=== PATIENT | female | born 1955 | race Caucasian/White ===

== ENCOUNTER 2016-11-25 16:09 | Inpatient (IN) | payer MEDICARE ==
[2016-11-25 17:31] LABS: Basophils % (A) 0 %; CH 32.4; CHCM 32.5; Eosinophils # (A) 0.1 k/uL (0-0.7); Eosinophils % (A) 1 %; HCT 40.5 % (34.0-46.0); HDW 1.88; HGB 13.4 gm/dL (11.4-16.0); Luc # (Auto) 0.13; Luc % (Auto) 3; Lymphocytes # (A) 1.6 k/uL (1.0-4.8); Lymphocytes % (A) 31 %; MCV 100.1 fL (80.0-100.0); Mean Platelet Volume 6.9; Monocytes # (A) 0.3 k/uL (0-1.0); Monocytes % (A) 6 %; Neutrophils # (A) 3.1 k/uL (1.3-7.7); Neutrophils % (A) 59 %; RBC 4.05 m/uL (3.80-5.40); RDW 13.3 % (11.5-15.5); WBC 5.2 k/uL (3.8-10.6); WBC (Perox) 5.28
[2016-11-25 17:33] LABS: ALT 21 U/L (9-52); AST 20 U/L (14-36); Alkaline Phosphatase 51 U/L (38-126); Anion Gap 10 mmol/L; Blood Urea Nitrogen 18 mg/dL (7-17); Calcium 9.3 mg/dL (8.4-10.2); Carbon Dioxide 25 mmol/L (22-30); Chloride 104 mmol/L (98-107); Glucose 91 mg/dL (74-99); Magnesium 2.1 mg/dL (1.6-2.3); Non-African American GFR(MDRD) >60 (>60 ml/min/1.73 sqM); Potassium 4.6 mmol/L (3.5-5.1); Sodium 139 mmol/L (137-145); Total Bilirubin 0.8 mg/dL (0.2-1.3); Total Protein 6.8 g/dL (6.3-8.2)
--- NOTE | 2016-11-25 17:37 | XR ---
EXAMINATION TYPE: XR chest 2V DATE OF EXAM: 11/25/2016 5:24 PM COMPARISON: NONE HISTORY: Chest pain TECHNIQUE: Frontal and lateral views of the chest are obtained. FINDINGS: There is no heart failure nor confluent pneumonic infiltrate. There are no hilar masses. T horacic aorta is atheromatous. There is no pleural effusion. There are chest leads. IMPRESSION: No active cardiopulmonary disease. Normal heart.
[2016-11-25 17:44] LABS: Partial Thromboplastin Time 23.8 sec (22.0-30.0)
[2016-11-25 17:46] LABS: Creatine Kinase 34 U/L (30-135)
[2016-11-25 17:58] LABS: Creatine Kinase MB 0.2 ng/mL (0.0-2.4); Troponin I <0.012 ng/mL (0.000-0.034)
--- NOTE | 2016-11-25 18:57 | ED ---
General Adult HPI - General Chief complaint: Chest Pain Stated complaint: Chest Pain Time Seen by Provider: 11/25/16 16:19 Source: patient, RN notes reviewed Mode of arrival: wheelchair Limitations: no limitations - History of Present Illness Initial comments: This is a 7-year-old female who believes she's having a reaction to her atenolol. She states she was placed on because she had proximal SVT. She started 25 mg a day she did last night take 12.5 mg. She's been having bradycardia and feeling somewhat weak. She denies any overt chest pain. She denies any fevers chills sweats focal weakness or other symptoms. - Related Data Home Medications Medication Instructions Recorded Confirmed ALPRAZolam [Xanax] 0.25 mg PO BID PRN 11/25/16 11/25/16 Aspirin [Children's Aspirin] 81 mg PO HS 11/25/16 11/25/16 Atenolol 25 mg PO DAILY 11/25/16 11/25/16 Cholecalciferol [Vitamin D3] 2,000 unit PO DAILY 11/25/16 11/25/16 Fish Oil/Dha/Epa [Fish Oil 1,200 1 cap PO DAILY 11/25/16 11/25/16 mg Fish Oil] Hydrochlorothiazide 12.5 mg PO DAILY 11/25/16 11/25/16 Meloxicam 15 mg PO DAILY 11/25/16 11/25/16 Omeprazole 20 mg PO DAILY 11/25/16 11/25/16 Tamoxifen Citrate 20 mg PO DAILY 11/25/16 11/25/16 Turmeric 600mg 600 mg PO DAILY 11/25/16 11/25/16 Allergies Allergy/AdvReac Type Severity Reaction Status Date / Time acetaminophen [From Vicodin] Allergy Rash/Hives Verified 11/25/16 16:28 hydrocodone [From Vicodin] Allergy Rash/Hives Verified 11/25/16 16:28 Review of Systems ROS Statement: Those systems with pertinent positive or pertinent negative responses have been documented in the HPI. ROS Other: All systems not noted in ROS Statement are negative. Past Medical History Past Medical History: Cancer, GERD/Reflux, Osteoarthritis (OA), Supraventricular Tachycardia (SVT) Additional Past Medical History / Comment(s): breast cancer, SVT History of Any Multi-Drug Resistant Organisms: None Reported Past Surgical History: Cholecystectomy, Orthopedic Surgery Additional Past Surgical History / Comment(s): left lumpectomy Past Psychological History: No Psychological Hx Reported Smoking Status: Never smoker Past Alcohol Use History: Occasional Past Drug Use History: None Reported General Exam - General Exam Comments Initial Comments: This is a well-developed well-nourished awake alert oriented x 3 female Limitations: no limitations General appearance: alert, in no apparent distress Head exam: Present: atraumatic, normocephalic, normal inspection Eye exam: Present: normal appearance, PERRL, EOMI. Absent: scleral icterus, conjunctival injection, periorbital swelling ENT exam: Present: normal exam, mucous membranes moist Neck exam: Present: normal inspection. Absent: tenderness, meningismus, lymphadenopathy Respiratory exam: Present: normal lung sounds bilaterally. Absent: respiratory distress, wheezes, rales, rhonchi, stridor Cardiovascular Exam: Present: normal rhythm, bradycardia, normal heart sounds. Absent: systolic murmur, diastolic murmur, rubs, gallop, clicks GI/Abdominal exam: Present: soft, normal bowel sounds. Absent: distended, tenderness, guarding, rebound, rigid Extremities exam: Present: normal inspection, full ROM, normal capillary refill. Absent: tenderness, pedal edema, joint swelling, calf tenderness Back exam: Present: normal inspection Neurological exam: Present: alert, oriented X3, CN II-XII intact Psychiatric exam: Present: normal affect, normal mood Skin exam: Present: warm, dry, intact, normal color. Absent: rash Course Vital Signs 11/25/16 16:11 Temperature 97.8 F Pulse Rate 55 L Respiratory 20 Rate Blood Pressure 178/77 O2 Sat by Pulse 98 Oximetry EKG Findings - EKG Results: EKG: interpreted by ERMD, sinus rhythm (Sinus bradycardia rate of 56. Interval 160 QRS duration 80 daily since QTC of 434/[address]-T wave changes) Medical Decision Making - Medical Decision Making Patient is been observed she has been noted to have bradycardia with occasional ectopy. He did have a long discussion with her and her family patient will be admitted for evaluation Dr. Lagunas will be consulted. - Lab Data Result diagrams: 11/25/16 17:09 11/25/16 17:09 Lab Results 11/25/16 11/25/16 11/25/16 Range/Units 17:09 17:09 17:09 WBC 5.2 (3.8-10.6) k/uL RBC 4.05 (3.80-5.40) m/uL Hgb 13.4 (11.4-16.0) gm/dL Hct 40.5 (34.0-46.0) % MCV 100.1 H (80.0-100.0) fL MCH 33.0 (25.0-35.0) pg MCHC 33.0 (31.0-37.0) g/dL RDW 13.3 (11.5-15.5) % Plt Count 277 (150-450) k/uL Neutrophils % 59 % Lymphocytes % 31 % Monocytes % 6 % Eosinophils % 1 % Basophils % 0 % Neutrophils # 3.1 (1.3-7.7) k/uL Lymphocytes # 1.6 (1.0-4.8) k/uL Monocytes # 0.3 (0-1.0) k/uL Eosinophils # 0.1 (0-0.7) k/uL Basophils # 0.0 (0-0.2) k/uL PT (9.0-12.0) sec INR (<1.1) APTT (22.0-30.0) sec Sodium 139 (137-145) mmol/L Potassium 4.6 (3.5-5.1) mmol/L Chloride 104 (98-107) mmol/L Carbon Dioxide 25 (22-30) mmol/L Anion Gap 10 mmol/L BUN 18 H (7-17) mg/dL Creatinine 0.80 (0.52-1.04) mg/dL Est GFR (MDRD) Af Amer >60 (>60 ml/min/1.73 sqM) Est GFR (MDRD) Non-Af >60 (>60 ml/min/1.73 sqM) Glucose 91 (74-99) mg/dL Calcium 9.3 (8.4-10.2) mg/dL Magnesium 2.1 (1.6-2.3) mg/dL Total Bilirubin 0.8 (0.2-1.3) mg/dL AST 20 (14-36) U/L ALT 21 (9-52) U/L Alkaline Phosphatase 51 (38-126) U/L Total Creatine Kinase 34 (30-135) U/L CK-MB (CK-2) 0.2 (0.0-2.4) ng/mL CK-MB (CK-2) Rel Index 0.6 Troponin I <0.012 (0.000-0.034) ng/mL Total Protein 6.8 (6.3-8.2) g/dL Albumin 4.2 (3.5-5.0) g/dL TSH 1.020 (0.465-4.680) mIU/L 11/25/16 Range/Units 17:09 WBC (3.8-10.6) k/uL RBC (3.80-5.40) m/uL Hgb (11.4-16.0) gm/dL Hct (34.0-46.0) % MCV (80.0-100.0) fL MCH (25.0-35.0) pg MCHC (31.0-37.0) g/dL RDW (11.5-15.5) % Plt Count (150-450) k/uL Neutrophils % % Lymphocytes % % Monocytes % % Eosinophils % % Basophils % % Neutrophils # (1.3-7.7) k/uL Lymphocytes # (1.0-4.8) k/uL Monocytes # (0-1.0) k/uL Eosinophils # (0-0.7) k/uL Basophils # (0-0.2) k/uL PT 10.0 (9.0-12.0) sec INR 1.0 (<1.1) APTT 23.8 (22.0-30.0) sec Sodium (137-145) mmol/L Potassium (3.5-5.1) mmol/L Chloride (98-107) mmol/L Carbon Dioxide (22-30) mmol/L Anion Gap mmol/L BUN (7-17) mg/dL Creatinine (0.52-1.04) mg/dL Est GFR (MDRD) Af Amer (>60 ml/min/1.73 sqM) Est GFR (MDRD) Non-Af (>60 ml/min/1.73 sqM) Glucose (74-99) mg/dL Calcium (8.4-10.2) mg/dL Magnesium (1.6-2.3) mg/dL Total Bilirubin (0.2-1.3) mg/dL AST (14-36) U/L ALT (9-52) U/L Alkaline Phosphatase (38-126) U/L Total Creatine Kinase (30-135) U/L CK-MB (CK-2) (0.0-2.4) ng/mL CK-MB (CK-2) Rel Index Troponin I (0.000-0.034) ng/mL Total Protein (6.3-8.2) g/dL Albumin (3.5-5.0) g/dL TSH (0.465-4.680) mIU/L - Radiology Data Radiology results: report reviewed (I did review the imaging and report no acute findings.), image reviewed Disposition Clinical Impression: Bradycardia Disposition: ADMITTED IP TO THIS HOSP Condition: Stable Referrals: Cabrera Dhillon MD [Primary Care Provider] - 1-2 days
[2016-11-25] MEDS ORDERED: NALOXONE 0.4 MG/ML 1 ML VIAL IV PRN (18:58)
[2016-11-25] MEDS ORDERED: ALPRAZolam 0.25 MG TAB PO PRN (19:00)
[2016-11-25 20:17] VITALS: BMI 25.9
[2016-11-25] MEDS ORDERED: ASPIRIN 81 MG CHEW PO SCH (21:00)
[2016-11-25] MEDS ORDERED: ZOLPIDEM 5 MG TAB PO PRN (21:48)
[2016-11-25] MEDS ORDERED: METOPROLOL TARTRATE 12.5 MG TAB PO PRN (22:41)
[2016-11-26] MEDS ORDERED: ACETAMINOPHEN TAB 325 MG TAB PO PRN (04:32)
[2016-11-26 05:10] VITALS: RESP 16
[2016-11-26] MEDS ORDERED: PANTOPRAZOLE 40 MG TABLET PO SCH (07:30)
--- NOTE | 2016-11-26 08:50 | HP ---
DATE OF ADMISSION: 11/25/2016 PRESENTING COMPLAINT: Weak, tired. HISTORY OF PRESENTING COMPLAINT: This is a very pleasant 61-year-old patient of Dr. Dhillon whose chronic stable medical conditions include GERD, osteoarthritis, history of breast cancer. Patient has been having episodes of fluttering in the chest, went and saw Dr. Dhillon and did get an event monitor. Patient was diagnosed to have SVT and he put her on atenolol 25 mg a day. Patient presented with 2 episodes of dizziness, found her heart rate down to be 44 and getting tired and she decided to come in. Patient this morning only took half the dose, that is 12.5 atenolol and decided to come in. No obvious chest pressure, just feels a bit tired and rundown. REVIEW OF SYSTEMS: CONSTITUTIONAL: Tired. HEENT: As above. RESPIRATORY: None. CARDIOVASCULAR: As above. GASTROINTESTINAL: None. GENITOURINARY: None. MUSCULOSKELETAL: Aches and pains in different joints. DERMATOLOGICAL: None. HEMATOLOGIC: None. LYMPHATICS: None. PSYCHIATRY: None. NEUROLOGICAL: None. Past medical history of GERD, osteoarthritis, breast cancer treated with radiation treatment and lumpectomy. PAST SURGICAL HISTORY: Cholecystectomy, orthopedic surgery, breast surgery as above. SOCIAL HISTORY: Does not smoke. Alcohol occasionally. 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 . FAMILY HISTORY: Reviewed, noncontributory to presentation. HOME MEDICATIONS: 1. Turmeric 600 mg daily. 2. Xanax 0.25 p.o. b.i.d. 3. Fish oil 1 capsule p.o. daily. 4. Vitamin D3 two thousand units p.o. daily. 5. Aspirin 81 mg p.o. q.h.s. 6. Omeprazole 20 mg p.o. daily. 7. Hydrochlorothiazide 12.5 p.o. daily. 8. Atenolol 25 mg p.o. daily. 9. Tamoxifen 20 mg p.o. daily. 10. Meloxicam 50 mg p.o. daily. Allergies to VICODIN. On examination, temperature on presentation 97.8, pulse 55, respirations 20, blood pressure 116/79, repeated 132/62, pulse ox 95% on room air. GENERAL APPEARANCE: Average build, lying in bed, not in distress. EYES: Pupils equal, conjunctivae normal. HEENT: Oral cavity normal. NECK: JVD not raised. Mass not palpable. RESPIRATORY: Effort normal. Lungs are clear. CARDIOVASCULAR: First and second sounds normal. No edema. ABDOMEN: Soft, nontender. Liver and spleen not palpable. LYMPHATIC: No lymph nodes palpable in neck or axillae. PSYCHIATRY: Alert and oriented x3. Mood and affect normal. NEUROLOGICAL: Pupils equal. Cranial nerves grossly intact. Power and sensation grossly intact. INVESTIGATIONS: White count 5.2. Potassium 4.6. BUN 8, creatinine 0.80. TSH normal. Troponin negative. EKG appears to be sinus rhythm with a rate of 56. ASSESSMENT: 1. Symptomatic sinus bradycardia for patient being on beta jacquelyn atenolol 25 mg. 2. Gastroesophageal reflux disease. 3. Primary osteoarthritis in multiple joints, bilateral. 4. Paroxysmal supraventricular tachycardia history. PLAN: Had a long talk with the patient, at this point, we can actually stop patient's atenolol and use Lopressor 12.5 on a p.r.n. basis if she gets these episodes. Patient will be kept off the atenolol, keep her on the monitor. Care was discussed with the patient.
[2016-11-26] MEDS ORDERED: HYDROCHLOROTHIAZIDE 12.5 MG CAP PO SCH (09:00)
[2016-11-26] MEDS ORDERED: TAMOXIFEN 10 MG TAB PO SCH (09:00)
[2016-11-26] MEDS ORDERED: ENOXAPARIN 40 MG/0.4 ML SYRINGE SQ SCH (09:00)
[2016-11-26] MEDS ORDERED: MELOXICAM 7.5 MG TAB PO SCH (09:00)
[2016-11-26] MEDS ORDERED: NON-FORMULARY DRUG (Fish Oil/Dha/Epa [Fish Oil 1,200 Mg Fish Oil] 1 CAP) PO SCH (09:00)
[2016-11-26 09:43] VITALS: BP 124/74
--- NOTE | 2016-11-26 10:19 | P.CRDCN ---
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 According to the patient, on September 17 the patient was started on atenolol, she had worn an event monitor and apparently had been noted to have episodes of SVT, for this reason the atenolol was initiated. The patient states she was scheduled to see a licensed master social worker in [place] as a new patient, but had not yet seen him. Patient states she went to lie down in bed, became quite dizzy, checked her blood pressure and heart rate at that time, blood pressure was fine but the heart rate was in the 40s. For this reason she went to be further evaluated, recommendation was to be admitted to the hospital. Blood pressure on arrival here 178/77 with a heart rate in the 50s. Temperature 97.8 she was 98% on room air. White blood cell count 5.2, hemoglobin 13.4, platelet count 277. Potassium 4.6, BUN 18, creatinine 0.8, troponin 0.012. TSH 1.02. EKG on arrival here showed a sinus bradycardia with nonspecific ST-T wave changes computed tomography scan of the abdomen and pelvis did not reveal evidence of a bowel obstruction, multiple lesions within the liver believed to represent cysts. Tiny umbilical hernia..Ultrasound of the liver revealed hepatic cysts. Chest x-ray did not reveal any acute cardiopulmonary disease. At the time of my examination this morning, patient denies any dizziness or lightheadedness, no palpitations. Past Medical History Past Medical History: Cancer, GERD/Reflux, Osteoarthritis (OA), Supraventricular Tachycardia (SVT) Additional Past Medical History / Comment(s): breast cancer, SVT History of Any Multi-Drug Resistant Organisms: None Reported Past Surgical History: Cholecystectomy, Orthopedic Surgery Additional Past Surgical History / Comment(s): left lumpectomy Past Psychological History: No Psychological Hx Reported Smoking Status: Never smoker Past Alcohol Use History: Occasional Past Drug Use History: None Reported Medications and Allergies Home Medications Medication Instructions Recorded Confirmed Type ALPRAZolam [Xanax] 0.25 mg PO BID PRN 11/25/16 11/25/16 History Aspirin [Children's Aspirin] 81 mg PO HS 11/25/16 11/25/16 History Atenolol 25 mg PO DAILY 11/25/16 11/25/16 History Cholecalciferol [Vitamin D3] 2,000 unit PO DAILY 11/25/16 11/25/16 History Fish Oil/Dha/Epa [Fish Oil 1,200 1 cap PO DAILY 11/25/16 11/25/16 History mg Fish Oil] Hydrochlorothiazide 12.5 mg PO DAILY 11/25/16 11/25/16 History Meloxicam 15 mg PO DAILY 11/25/16 11/25/16 History Omeprazole 20 mg PO DAILY 11/25/16 11/25/16 History Tamoxifen Citrate 20 mg PO DAILY 11/25/16 11/25/16 History Turmeric 600mg 600 mg PO DAILY 11/25/16 11/25/16 History Allergies Allergy/AdvReac Type Severity Reaction Status Date / Time hydrocodone [From Vicodin] Allergy Rash/Hives Verified 11/25/16 16:28 Physical Exam Vitals: Vital Signs Temp Pulse Pulse Resp BP BP Pulse Ox 11/26/16 09:21 97.1 F L 66 16 124/74 98 11/26/16 04:00 97.2 F L 50 L 16 136/74 96 11/26/16 00:00 97.3 F L 52 L 16 118/70 97 11/25/16 20:00 97.3 F L 52 L 17 115/66 95 11/25/16 19:38 97.6 F 55 L 18 132/62 95 11/25/16 19:24 97.2 F L 56 L 18 145/74 100 11/25/16 19:16 97.6 F 55 L 18 132/62 95 11/25/16 16:11 97.8 F 55 L 20 178/77 98 Intake and Output 11/25/16 11/26/16 11/26/16 22:59 06:59 14:59 Intake Total 300 480 360 Output Total 600 Balance 300 -120 360 Intake: Oral 300 480 360 Output: Urine 600 Other: Voiding Method Toilet Toilet Toilet # Voids 2 Weight 84.3 kg 84.2 kg PHYSICAL EXAMINATION: HEENT: Head is atraumatic, normocephalic. Pupils equal, round. Neck is supple. There is no elevated jugular venous pressure. HEART EXAMINATION: Heart S1, S2 normal. No murmur or gallop heard. CHEST EXAMINATION: Lungs are clear to auscultation and precussion. No chest wall tenderness is noted on palpation or with deep breathing. ABDOMEN: Soft, nontender. Bowel sounds are heard. No organomegaly noted. EXTREMITIES: 2+ peripheral pulses with no evidence of peripheral edema and no calf tenderness noted. NEUROLOGIC patient is awake, alert and oriented -3. . Results 11/25/16 17:11/25/16 17:09 Cardiac Enzymes 11/25/16 11/25/16 Range/Units 17: 17:09 AST 20 (14-36) U/L CK-MB (CK-2) 0.2 (0.0-2.4) ng/mL Troponin I <0.012 (0.000-0.034) ng/mL Coagulation 11/25/16 Range/Units 17:09 PT 10.0 (9.0-12.0) sec APTT 23.8 (22.0-30.0) sec CBC 11/25/16 Range/Units 17:09 WBC 5.2 (3.8-10.6) k/uL RBC 4.05 (3.80-5.40) m/uL Hgb 13.4 (11.4-16.0) gm/dL Hct 40.5 (34.0-46.0) % Plt Count 277 (150-450) k/uL Comprehensive Metabolic Panel 11/25/16 Range/Units 17:09 Sodium 139 (137-145) mmol/L Potassium 4.6 (3.5-5.1) mmol/L Chloride 104 (98-107) mmol/L Carbon Dioxide 25 (22-30) mmol/L BUN 18 H (7-17) mg/dL Creatinine 0.80 (0.52-1.04) mg/dL Glucose 91 (74-99) mg/dL Calcium 9.3 (8.4-10.2) mg/dL AST 20 (14-36) U/L ALT 21 (9-52) U/L Alkaline Phosphatase 51 (38-126) U/L Total Protein 6.8 (6.3-8.2) g/dL Albumin 4.2 (3.5-5.0) g/dL Current Medications Generic Name Dose Route Start Last Admin Trade Name Freq PRN Reason Stop Dose Admin Acetaminophen 650 mg 11/26/16 04:32 11/26/16 04:41 Tylenol Tab PO 650 mg Q4HR PRN Administration Fever and/ or Pain Alprazolam 0.25 mg 11/25/16 19:00 11/25/16 21:52 Xanax PO 0.25 mg BID PRN Administration Anxiety Aspirin 81 mg 11/25/16 21:00 11/25/16 21:52 Aspirin PO 81 mg HS [facility] Administration Cholecalciferol 2,000 unit 11/26/16 12:00 11/26/16 09:17 Vitamin D3 PO 2,000 unit 1200 [facility] Administration Enoxaparin Sodium 40 mg 11/26/16 09:00 11/26/16 09:14 Lovenox SQ Not Given DAILY [facility] Hydrochlorothiazide 12.5 mg 11/26/16 09:00 11/26/16 09:16 Hydrodiuril PO Not Given DAILY [facility] Meloxicam 15 mg 11/26/16 09:00 11/26/16 09:16 Mobic PO 15 mg DAILY [facility] Administration Metoprolol Tartrate 12.5 mg 11/25/16 22:41 Lopressor PO QID PRN Cardiac Arrhythmia Naloxone HCl 0.2 mg 11/25/16 18:58 Narcan IV Q2M PRN Opioid Reversal Pantoprazole Sodium 40 mg 11/26/16 07:30 11/26/16 06:59 Protonix PO 40 mg [id number] Administration Tamoxifen Citrate 20 mg 11/26/16 09:00 11/26/16 09:16 Nolvadex PO 20 mg DAILY [facility] Administration Zolpidem Tartrate 2.5 mg 11/25/16 21:48 11/25/16 23:54 Ambien PO 2.5 mg HS PRN Administration Insomnia Intake and Output 11/25/16 11/26/16 11/26/16 22:59 06:59 14:59 Intake Total 300 480 360 Output Total 600 Balance 300 -120 360 Intake: Oral 300 480 360 Output: Urine 600 Other: Voiding Method Toilet Toilet Toilet # Voids 2 Weight 84.3 kg 84.2 kg 11/25/16 17:09 11/25/16 17:09 EKG Interpretations (text) EKG shows normal sinus rhythm with no acute changes. Assessment and Plan Plan: Assessment and plan #1 symptoms of dizziness with associated bradycardia. Patient recently started on atenolol because of SVT found on an event monitor. #2 cardiac risk factors negative for hypertension, no diabetes, no hyperlipidemia, nonsmoker. #3 history of breast CA with lumpectomy and radiation in 2014 Plan We will obtain an echocardiogram with Doppler study today. Hold beta blockers at this time. Review event monitor. Further recommendations to follow. DNP note has been reviewed, I agree with a documented findings and plan of care. Patient was seen and examined. <Easton Rushing - Last Filed: 11/26/16 11:07> Physical Exam Vitals: Vital Signs Temp Pulse Pulse Resp BP BP Pulse Ox 11/26/16 09:21 97.1 F L 66 16 124/74 98 11/26/16 04:00 97.2 F L 50 L 16 136/74 96 11/26/16 00:00 97.3 F L 52 L 16 118/70 97 11/25/16 20:00 97.3 F L 52 L 17 115/66 95 11/25/16 19:38 97.6 F 55 L 18 132/62 95 11/25/16 19:24 97.2 F L 56 L 18 145/74 100 11/25/16 19:16 97.6 F 55 L 18 132/62 95 11/25/16 16:11 97.8 F 55 L 20 178/77 98 Intake and Output 11/25/16 11/26/16 11/26/16 22:59 06:59 14:59 Intake Total 300 480 360 Output Total 600 Balance 300 -120 360 Intake: Oral 300 480 360 Output: Urine 600 Other: Voiding Method Toilet Toilet Toilet # Voids 2 Weight 84.3 kg 84.2 kg Results 11/25/16 17:09 11/25/16 17:09 Cardiac Enzymes 11/25/16 11/25/16 Range/Units 17:09 17:09 AST 20 (14-36) U/L CK-MB (CK-2) 0.2 (0.0-2.4) ng/mL Troponin I <0.012 (0.000-0.034) ng/mL Coagulation 11/25/16 Range/Units 17:09 PT 10.0 (9.0-12.0) sec APTT 23.8 (22.0-30.0) sec CBC 11/25/16 Range/Units 17:09 WBC 5.2 (3.8-10.6) k/uL RBC 4.05 (3.80-5.40) m/uL Hgb 13.4 (11.4-16.0) gm/dL Hct 40.5 (34.0-46.0) % Plt Count 277 (150-450) k/uL Comprehensive Metabolic Panel 11/25/16 Range/Units 17:09 Sodium 139 (137-145) mmol/L Potassium 4.6 (3.5-5.1) mmol/L Chloride 104 (98-107) mmol/L Carbon Dioxide 25 (22-30) mmol/L BUN 18 H (7-17) mg/dL Creatinine 0.80 (0.52-1.04) mg/dL Glucose 91 (74-99) mg/dL Calcium 9.3 (8.4-10.2) mg/dL AST 20 (14-36) U/L ALT 21 (9-52) U/L Alkaline Phosphatase 51 (38-126) U/L Total Protein 6.8 (6.3-8.2) g/dL Albumin 4.2 (3.5-5.0) g/dL Current Medications Generic Name Dose Route Start Last Admin Trade Name Tetoq PRN Reason Stop Dose Admin Acetaminophen 650 mg 11/26/16 04:32 11/26/16 04:41 Tylenol Tab PO 650 mg Q4HR PRN Administration Fever and/ or Pain Alprazolam 0.25 mg 11/25/16 19:00 11/25/16 21:52 Xanax PO 0.25 mg BID PRN Administration Anxiety Aspirin 81 mg 11/25/16 21:00 11/25/16 21:52 Aspirin PO 81 mg HS [facility] Administration Cholecalciferol 2,000 unit 11/26/16 12:00 11/26/16 09:17 Vitamin D3 PO 2,000 unit 1200 [facility] Administration Enoxaparin Sodium 40 mg 11/26/16 09:00 11/26/16 09:14 Lovenox SQ Not Given DAILY [facility] Hydrochlorothiazide 12.5 mg 11/26/16 09:00 11/26/16 09:16 Hydrodiuril PO Not Given DAILY [facility] Meloxicam 15 mg 11/26/16 09:00 11/26/16 09:16 Mobic PO 15 mg DAILY [facility] Administration Metoprolol Tartrate 12.5 mg 11/25/16 22:41 Lopressor PO QID PRN Cardiac Arrhythmia Naloxone HCl 0.2 mg 11/25/16 18:58 Narcan IV Q2M PRN Opioid Reversal Pantoprazole Sodium 40 mg 11/26/16 07:30 11/26/16 06:59 Protonix PO 40 mg [facility] Administration Tamoxifen Citrate 20 mg 11/26/16 09:00 11/26/16 09:16 Nolvadex PO 20 mg DAILY [facility] Administration Zolpidem Tartrate 2.5 mg 11/25/16 21:48 11/25/16 23:54 Ambien PO 2.5 mg HS PRN Administration Insomnia Intake and Output 11/25/16 11/26/16 11/26/16 22:59 06:59 14:59 Intake Total 300 480 360 Output Total 600 Balance 300 -120 360 Intake: Oral 300 480 360 Output: Urine 600 Other: Voiding Method Toilet Toilet Toilet # Voids 2 Weight 84.3 kg 84.2 kg 11/25/16 17:09 11/25/16 17:09
--- NOTE | 2016-11-26 11:12 | P.PN ---
Progress Note - Text Patient interviewed and examined Recurrent episodes of brief palpitations. Event monitor strips are reviewed and shows an irregular atrial tachycardia, short atrial cycle length, very brief Frequent episodes but no syncope Bradycardia with low dose beta blockers TSH No sleep apnea No hypertension Suggest 2-D echo and Doppler study Avoid all antiarrhythmic drugs and AV val blocking drugs Avoid drug therapy I would recommend observation only unless the episodes are extremely frequent and documented or she has presyncopal spells with this. In that case pulmonary vein isolation/atrial tachycardia ablation should be considered Please see full dictation by Dr. santamaria
[2016-11-26] MEDS ORDERED: CHOLECALCIFEROL 1,000 UNIT TAB PO SCH (12:00)
[2016-11-26 13:15] VITALS: PULSE 54; TEMP 97
--- NOTE | 2016-11-26 15:43 | ECHOF ---
Referral Reason:bradycardia MEASUREMENTS -------- HEIGHT: 182.9 cm WEIGHT: 83.9 kg BP: 124/74 RVIDd: 3.3 cm (< 3.3) IVSd: 1.1 cm (0.6 - 1.1) LVIDd: 3.7 cm (3.9 - 5.3) LVPWd: 1.3 cm (0.6 - 1.1) IVSs: 2.1 cm LVIDs: 2.3 cm LVPWs: 1.8 cm Ao Diam: 3.9 cm (2.0 - 3.7) AV Cusp: 2.4 cm (1.5 - 2.6) LA Diam: 3.7 cm (2.7 - 3.8) MV EXCURSION: 18.395 mm (> 18.000) MV EF SLOPE: 119 mm/s (70 - 150) EPSS: 1.0 cm MV E Austin: 0.66 m/s MV DecT: 222 ms MV A [place]: 0.60 m/s MV E/A Ratio: 1.10 AR PHT: 168 ms RAP: 5.00 mmHg RVSP: 13.29 mmHg FINDINGS -------- Sinus rhythm. This was a technically difficult study with suboptimal views. Left ventricular wall thickness is normal. Overall left ventricular systolic function is low-normal with, an EF between 50 - 55 %. The right ventricle is normal in size. The left atrium is normal in size. The right atrium is normal in size. 1.5mg of Definity was utilized for enhancement of images Aortic valve is trileaflet and is mildly thickened. Trace amount of aortic regurgitation. The mitral valve leaflets are mildly thickened. There is trace mitral regurgitation. Trace tricuspid regurgitation present. The right ventricular systolic pressure, as measured by Doppler, is 13.29mmHg. Pulmonic valve appears structurally normal. The aortic root is mildy dilated. The pericardium is normal. CONCLUSIONS -------- 1. Sinus rhythm. 2. Trace amount of aortic regurgitation. 3. The mitral valve leaflets are mildly thickened. 4. There is trace mitral regurgitation. 5. Trace tricuspid regurgitation present. 6. The right ventricular systolic pressure, as measured by Doppler, is 13.29mmHg. 7. Pulmonic valve appears structurally normal. 8. The aortic root is mildy dilated. 9. The pericardium is normal. 10. This was a technically difficult study with suboptimal views. 11. Left ventricular wall thickness is normal. 12. Overall left ventricular systolic function is low-normal with, an EF between 50 - 55 %. 13. The right ventricle is normal in size. 14. The left atrium is normal in size. 15. The right atrium is normal in size. 16. 1.5mg of Definity was utilized for enhancement of images 17. Aortic valve is trileaflet and is mildly thickened. PAINT TESTER: Melania Osullivan RDCS
--- NOTE | 2016-11-27 06:52 | DS ---
DATE OF ADMISSION: 11/25/2016 DATE OF DISCHARGE: 11/26/2016 FINAL DIAGNOSIS (ES): 1. 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 2. Gastroesophageal reflux disease. 3. 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 4. ( ). 5. History of paroxysmal supraventricular tachycardia. 6. Irregular atrial tachycardia. HOSPITAL COURSE: This is a patient who was a [facility] as an outpatient for SVT put on beta jacquelyn presented with bradycardia, symptomatic and atenolol was discontinued. Patient's heart rate is doing better. Echocardiogram showed preserved LV function. Per Dr. Rushing no further antiarrhythmics to be given. He thinks the patient has got irregular atrial tachycardia. On exam, lungs are clear. CARDIOVASCULAR: First and second sounds normal. DISCHARGE MEDICATIONS: 1. Xanax 0.25 p.o. b.i.d. p.r.n. 2. Aspirin 81 mg q.h.s. 3. Vitamin D3 2000 units p.o. daily. 4. Fish oil 2000 mg p.o. daily. 5. Hydrochlorothiazide 12.5 p.o. daily. 6. Meloxicam 50 mg p.o. daily. 7. Omeprazole 20 mg p.o. daily. 8. Tamoxifen 20 mg p.o. daily. 9. Turmeric p.r.n. Follow up with Dr. Rushing in 2 weeks, follow-up with Dr. Dhillon in one week.
== END 2016-11-26 14:44 | disposition home or self-care (01) | DRG 310 ==
LOC: EC 16:09 → 6SEL 19:00
PROVIDERS: ADMIT Hospitalist; ATTEND Hospitalist
DX: R00.1 Bradycardia, unspecified (principal); K76.89 Other specified diseases of liver; I47.1 Supraventricular tachycardia; T44.7X5A Adverse effect of beta-adrenoreceptor antagonists, initial encounter; K21.9 Gastro-esophageal reflux disease without esophagitis; M19.91 Primary osteoarthritis, unspecified site; Z85.3 Personal history of malignant neoplasm of breast; Z90.49 Acquired absence of other specified parts of digestive tract; Z92.3 Personal history of irradiation; Z79.82 Long term (current) use of aspirin; Z79.1 Long term (current) use of non-steroidal anti-inflammatories (NSAID); Z79.899 Other long term (current) drug therapy
CPT/HCPCS: 36415; 71020; 80053; 82550; 82553; 83735; 84443; 84484; 85025; 85610; 85730; 93005; 93306; 99285

== ENCOUNTER → 2022-03-30 | Outpatient (CLI) | payer MEDICARE ==
--- NOTE | 2022-03-30 11:57 | US ---
EXAMINATION TYPE: US extremity nonvasculr ltd LT DATE OF EXAM: 03/30/2022 COMPARISON: NONE CLINICAL HISTORY: M25.852 OTHER SPECIFIED JOINT DISORDERS. Patient has large lipoma left hip measuring 7.1 x 2. x 7.9cm IMPRESSION: Lipoma
== END | disposition home or self-care (01) ==
LOC: RADUSWWP 10:45
PROVIDERS: ATTEND Family Medicine
DX: M25.852 Other specified joint disorders, left hip (principal)